=== PATIENT | male | born 1985 | race Caucasian/White ===

== ENCOUNTER → 2019-01-18 | Outpatient (CLI) | payer OTHER | LOC: M.MRI 11:30 | DX: S83.282A Other tear of lateral meniscus, current injury, left knee, initial encounter (principal); X58.XXXA Exposure to other specified factors, initial encounter; Y93.89 Activity, other specified; Y92.89 Other specified places as the place of occurrence of the external cause; Y99.8 Other external cause status ==

== ENCOUNTER 2019-04-20 20:51 | Emergency (ER) | payer OTHER ==
[~2019-04-20] VITALS: Ht 182.9 cm; Wt 106.6 kg
[2019-04-20 21:16] LABS: ABSOLUTE BASOPHILS 0.1 thou/uL (0.0-0.2); ABSOLUTE EOSINOPHILS 0.2 thou/uL (0.0-0.7); ABSOLUTE MONOCYTES 0.8 thou/uL (0.0-1.2); ABSOLUTE NEUTROPHILS 4.8 thou/uL (1.6-8.1); BASOPHILS 0.8 %; EOSINOPHILS 2.9 %; HEMATOCRIT 43.1 % (42.0-52.0); HEMOGLOBIN 14.6 gm/dL (14.0-18.0); LYMPHOCYTES 25.6 %; MCH 32.1 pg (26.0-34.0); MCHC 33.8 g/dL (28.0-37.0); MONOCYTES 10.6 %; MPV 7.9 fl. (7.2-11.1); NUCLEATED RBCS 0 /100WBC; PLATELET COUNT* 223 thou/uL (150-400); POLYS 60.1 %; RBC 4.54 mil/uL (4.50-6.00); RDW-CV 12.8 % (10.5-14.5)
[2019-04-20 21:23] LABS: CALCIUM 9.1 mg/dL (8.5-10.1)
[2019-04-20 21:27] LABS: APTT 30.6 Seconds (25.0-31.3); PROTIME 10.1 Seconds (9.20-11.50)
[2019-04-20 21:28] LABS: ALBUMIN 3.9 g/dL (3.4-5.0); TOTAL BILIRUBIN 0.4 mg/dL (<0.1-1.0); TOTAL PROTEIN 7.4 g/dL (6.4-8.2)
[2019-04-20 21:46] VITALS: BP 148/90
== END 2019-04-20 21:50 | disposition home or self-care (01) ==
LOC: M.ERS 20:51
PROVIDERS: Family Medicine
DX: S80.02XA Contusion of left knee, initial encounter (principal); G89.18 Other acute postprocedural pain; X58.XXXA Exposure to other specified factors, initial encounter; Y92.89 Other specified places as the place of occurrence of the external cause; Y93.89 Activity, other specified; Y99.8 Other external cause status

== ENCOUNTER → 2019-08-23 | Outpatient (CLI) | payer OTHER | LOC: M.MRI 09:00 | DX: S83.282A Other tear of lateral meniscus, current injury, left knee, initial encounter (principal); M17.12 Unilateral primary osteoarthritis, left knee; X58.XXXA Exposure to other specified factors, initial encounter; Y93.89 Activity, other specified; Y92.89 Other specified places as the place of occurrence of the external cause; Y99.8 Other external cause status ==

== ENCOUNTER 2019-09-17 06:47 | Inpatient (IN) | payer OTHER ==
[2019-09-06 09:17] LABS: ABSOLUTE EOSINOPHILS 0.1 thou/uL (0.0-0.7); ABSOLUTE LYMPHOCYTES 1.3 thou/uL (0.8-5.3); ABSOLUTE MONOCYTES 0.5 thou/uL (0.0-1.2); ABSOLUTE NEUTROPHILS 3.5 thou/uL (1.6-8.1); BASOPHILS 0.8 %; EOSINOPHILS 1.7 %; HEMATOCRIT 44.4 % (42.0-52.0); HEMOGLOBIN 15.6 gm/dL (14.0-18.0); LYMPHOCYTES 24.4 %; MCH 32.7 pg (26.0-34.0); MCHC 35.1 g/dL (28.0-37.0); MCV 93.1 fL (80.0-100.0); MONOCYTES 8.9 %; MPV 8.7 fl. (7.2-11.1); NUCLEATED RBCS 0 /100WBC; PLATELET COUNT* 203 thou/uL (150-400); POLYS 64.2 %; RBC 4.76 mil/uL (4.50-6.00); RDW-CV 12.4 % (10.5-14.5); WBC 5.4 thou/uL (4.0-11.0)
[2019-09-06 09:26] LABS: APTT 28.7 Seconds (25.0-31.3); PROTIME 10.2 Seconds (9.20-11.50)
[2019-09-06 09:30] LABS: ALBUMIN 3.9 g/dL (3.4-5.0); CALCIUM 9.1 mg/dL (8.5-10.1); POTASSIUM 3.9 mmol/L (3.5-5.1); TOTAL BILIRUBIN 0.5 mg/dL (<0.1-1.0); TOTAL PROTEIN 7.2 g/dL (6.4-8.2)
[2019-09-06 10:28] LABS: ESR (SEDRATE) 3 mm/hr (0-15)
[2019-09-07 02:07] LABS: GLYCOHEMOGLOBIN (HGB A1C) 4.8 % (4.8-5.6)
[~2019-09-17] VITALS: Ht 185.4 cm; Wt 99.8 kg
[2019-09-17 18:18] VITALS: BP 139/66
--- NOTE | 2019-09-17 18:22 | NUR ---
PT ARRIVED FROM PACU ABOUT 1745. PT A&Ox4, DROWSY. 2+ PULSES. IV PATENT, INFUSING. DENIED N/V. RATES PAIN 06/26; 1MG DILAUDID, 1 NORCO, & 15MG TORADOL GIVEN AT [phone] IN PACU. TEDs, SCDs AND ICE PACK IN PLACE. ON 2LO2 WITH PULSE OX. TOLERATING FOOD. FALL PRECAUTIONS IN PLACE. WILL CONTINUE TO MONITOR.
[2019-09-17 20:36] VITALS: BP 137/75
[2019-09-18] VITALS: BP 126/75
[2019-09-18 04:22] VITALS: BP 127/73
[2019-09-18 04:29] LABS: HEMATOCRIT 38.4 % (42.0-52.0); HEMOGLOBIN 13.3 gm/dL (14.0-18.0)
--- NOTE | 2019-09-18 05:49 | NUR ---
PATIENT WAS ABLE TO REST COMFORTABLY. RECEIVING OXYCODONE 10-325 Q4 AND 50 MG TRAMADOL Q4. HE HAD SOME VOMITING/NAUSEA AT BEGINNING OF SHIFT BUT NO REPORTS FOR REMAINDER OF NIGHT. RECEIVED ALL ABX SCHEDULED AND WAS ABLE TO REST. UP WITH ASSISTANCE AND WALKER DID WELL GOING TO RESTROOM. WILL CONTINUE TO FOLLOW PLAN OF CARE.
[2019-09-18 08:00] VITALS: BP 125/77
--- NOTE | 2019-09-18 10:11 | NUR ---
PT IS HAVING A PAINFUL POPPING SCENSATION IN THE LATERAL ASPECT OF LEFT KNEE WITH PAIN. RESIDENT SUSAN PAGED AND MADE AWEAR. NO ORDERS GIVEN. STATED THAT HE WOULD LOOK AT XRAYS.
[2019-09-18 15:51] VITALS: BP 135/76
--- NOTE | 2019-09-18 17:39 | NUR ---
RECIEVED O.T. EVAL AND TX ORDER. WILL DEFER TO P.T. AT THIS TIME. PLEASE ORDER FURTHER O.T. SERVICES IF NEEDED.
--- NOTE | 2019-09-18 18:19 | NUR ---
PT A&Ox4. VITALS STABLE. DESSING C/D/I. PAIN PUMP PATENT. TEDS, SCDs, ICE PACK IN PLACE. IV PATENT. PAIN PARTIALLY CONTROLLED WITH NORCO 10/325, TRAMADOL, TORADOL AND DILAUDID. ZOFRAN GIVEN FOR NAUSEA. IN ROOM. WORKED WITH THERAPY. FALL PRECAUTIONS IN PLACE. WILL CONTINUE TO MONITOR.
[2019-09-18 21:05] VITALS: BP 145/90
[2019-09-19 04:12] LABS: HEMOGLOBIN 12.5 gm/dL (14.0-18.0)
--- NOTE | 2019-09-19 05:09 | NUR ---
PATIENT AMBULATING WELL. PAIN STILL AN ISSUE. RATES PAIN 8-9 EACH ASSESSMENT. REQUIRING PAIN MEDICATION OFTEN. NORCO 10-325, DILAUDID, TRAMADOL AND TORADOL WHEN AVAILABLE. TOLERATING FLUIDS AND FOOD WELL NO REPORTS OF NAUSEA. PLAN IS TO WORK WITH THERAPY AGAIN TUESDAY AND PAIN MANAGEMENT. WILL CONTINUE TO FOLLOW PLAN OF CARE.
[2019-09-19 10:34] VITALS: BP 143/90
--- NOTE | 2019-09-19 15:00 | NUR ---
CM CALLED IN PRESCRIPTION, WRITTEN, FOR ELIQUIS, WRITTEN TO HIS PHARMACY 09/18. CHECKED COPAY TODAY AND IT IS $0. UNABLE TO SEE PT.TODAY DUE TO BEING IN THERAPY . NO DISCHARGE TODAY,PER NURSING DUE TO POOR PAIN CONTROL. WILL SEE PT.IN AM TO INFORM OF ELIQUIS COPAY AND TO SET UP HOME HEALTH.
[2019-09-19 16:05] VITALS: BP 126/69
--- NOTE | 2019-09-19 17:57 | NUR ---
ASSUMED CARE OF PATIENT AT APPROX 0730. ALERT AND ORIENTED X4. ASSESSMENT COMPLETED AND CHARTED. VSS ON ROOM AIR. PAIN MANAGED WITH NORCO 10/325, DILAUDID, AND TORADOL. PATIENT STATED THAT HIS LEG HAD BEEN FEELING WET AND THAT HIS PAIN PUMP HAD BEEN LEAKING SINCE YESTERDAY. I EXAMINED THE PUMP AND THE INSERTION SITE AND NOTED THAT IT WAS LEAKING UNDER THE TEGADERM. ANESTHESIA WAS CALLED AND THEY STATED THAT THEY WERE AWARE THAT IT WAS LEAKING. I TOOK THE TEGADERM OFF AND IN DOING SO, I NOTICED THAT THE LINE WAS NOT EVEN IN THE SKIN AND THE MEIDCATION WAS DRAINING ONTO HIS SKIN AND LEAKING OUT FROM UNDER THE TEGADERM. PATIENT WAS VERY UPSET ABOUT THIS AND THAT IT WAS HARD TO CONTROL HIS PAIN DUE TO THE PUMP NOT WORKING IT SHOULD. AN INCICENT REPORT HAS BEEN MADE. PATIENT UP WITH STAND BY ASSIST, USING WALKER AND USING THE RESTROOM. WORKED WELL WITH THERAPIES AND PROGRESSED TOWARD GOALS. FALL PRECAUTIONS IN PLACE. CALL LIGHT WITHIN REACH. WILL CONTINUE WITH PLAN OF CARE.
--- NOTE | 2019-09-19 23:45 | NUR ---
INITAL ASSESMENT COMPLETED AT 1999. PT PLEASANT COOPERATIVE, REPORTS PAIN IN LEFT KNEE AT SURGURY SITE. PT GIVEN PRN DILAUDED WITH GOOD RESULTS. PLACED O2 AT LITERS TO MAINTAIN O2 SAT > 94% AFTER RECIEVING IV NARCOTICS. CALL LIGHT IN REACH, PT DEMONSTRATES PROPER USE.
[2019-09-20] VITALS: BP 145/80
[2019-09-20 03:58] VITALS: BP 127/66
[2019-09-20 08:00] VITALS: BP 125/82
--- NOTE | 2019-09-20 12:00 | NUR ---
SPOKE WITH PT.AND . HE SAID HE IS STILL HAVING ISSUES WITH PAIN CONTROL AND NEEDING IV PAIN MEDS AT TIMES. HE IS NORMALLY INDEPENDENT AT HOME. WORKS [employer]. NO USE OF DME OR HX OF HH. HE WOULD PREFER TO DO OUTPT.THERAPY. THINKING OF USING [facility]. ASKED IF THERE WERE ANY OUTPT.PLACES THAT STAY OPEN LATE. SHE IS THE ONLY ONE THAT CAN DRIVE HIM TO HIS THERAPY. INFORMED OF OUTPT.THERAPY PLACES IN [place]. THEY WILL LOOK ON LINE TO SEE WHAT THEIR HRS ARE. PT.WILL LET CM KNOW IN AM.WILL NEED FWW. [employer] OKD THIS WITH PT.S INSURANCE. ORDER OBTAINED AND PUT IN FRONT OF CHART.
[2019-09-20 15:40] VITALS: BP 121/77
--- NOTE | 2019-09-20 18:34 | NUR ---
ASSUMED CARE OF PATIENT AT APPROX 0730. ALERT AND ORIENTED X4. ASSESSMENT COMPLETED AND CHARTED. VSS ON ROOM AIR. PAIN IS STILL THE CHIEF COMPLAINT, GIVEN ORAL NORCO EVERY 3 HOURS. PATIENT STATED THAT HE WANTED TO TRY TO ONLY USE ORAL PAIN MEDICATION RATHER THAN IV, SO FAR PAIN HAS BEEN MANAGED WITH THIS PLAN. PATIENT UP STAND BY ASSIST AND USING THE WALKER TO WALK TO THE BATHROOM. WORKING WELL WITH THERAPIES AND PROGRESSING TOWARD GOALS. PATIENT SHOWERED TODAY. NO OTHER COMPLAINTS THIS SHIFT. CALL LIGHT WITHIN REACH. HOURLY ROUNDS COMPLETED. WILL CONTINUE WITH PLAN OF CARE.
[2019-09-20 20:31] VITALS: BP 132/68
[2019-09-21 00:18] VITALS: BP 131/73
[2019-09-21 03:53] VITALS: BP 122/68
[2019-09-21 07:35] VITALS: BP 123/84
--- NOTE | 2019-09-21 07:35 | NUR ---
ASSUMED CARE OF PT 09/20/19 AT APPROX 1930, PT A&OX4 THORUGHOUT SHIFT, VSS, PAIN MED REQUESTED AND GIVEN Q3HR ORDERED, PT STATES HE IS READY TO GO HOME, ASSESSMENTS AND HOURLY ROUNDINGS COMPLETED, REPORT GIVEN AND CARE OF PT TRANSFERED TO DAY SHIFT NURSE APPROX 0715.
[2019-09-21] MEDS ORDERED: NORCO 5-325 TA1 EAC1 PO (09:57)
[2019-09-21] MEDS ORDERED: ULTRAM 50MG TAB50 MG PO (09:57)
[2019-09-21 09:58] VITALS: BP 123/84
[2019-09-21] MEDS ORDERED: ELIQUIS2.5 MG PO (09:58)
[2019-09-21] MEDS ORDERED: ASPIR-TRIN325 MG PO (10:05)
--- NOTE | 2019-09-21 15:20 | NUR ---
PT.DISCHARGING TODAY. ORDER FOR FWW GIVEN TO PHYSICAL THERAPIST TO DISPENSE WALKER. PT.AND HAVE DECIDED TO DO OUTPT.THERAPY AT [facility] IN [place],WHERE THEY LIVE. CM SPOKE WITH ABBEY/[facility] [phone]. FAXED ORTHO ORDERS,FACE SHEET AND OP REPORT TO [facility] [phone]. AT DESK AND SPOKE WITH ABBEY ON PHONE TO SET UP FIRST APPT.
[2019-09-21 16:45] VITALS: BP 123/84
--- NOTE | 2019-09-21 16:46 | NUR ---
PT GIVEN DISCHARGE INFORMATION, CARE NOTES, AND PRESCRIPTIONS GIVEN. IV REMOVED. WALKER OBTAINED. PT LEFT VIA WHEELCHAIR WITH NURSING STAFF TO HOME WITH OUTPATIENT THERAPY. FALL RISK PRECAUTIONS IN PLACE. HOURLY ROUNDING COMPLETED.
--- NOTE | 2019-09-25 12:41 | OP ---
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 OPERATIVE PROCEDURE: Left total knee arthroplasty. SURGEON: Homer Horta DO BENCH [employer]SEMBLY INSPECTOR: AVTAR Li and Kali Phillip DO ANESTHESIA: General LMA with an adductor block. COMPLICATIONS: None. ESTIMATED BLOOD LOSS: 135 mL. IMPLANTS: [employer] total knee arthroplasty with a Journey II, femur, a 32 patella oval, a size 4 femur posterior stabilized Oxinium, a size 5 tibial plate. Two bags of Palacos cement. Two grams of vancomycin powder topically. SPECIMENS: None. ANTIBIOTICS: 2 g Ancef IVPB 30 minutes prior to incision. COMPLICATIONS: None. INDICATIONS FOR SURGERY: The patient is a 33-year-old male with longstanding severe left leg pain, both hip pain, knee pain and severe knee deformity with greater than 20 degrees of valgus deformity. This patient has failed conservative treatment to date including attempted weight loss, physical therapy, bracing, arthroscopic surgical debridement, injections, nonsteroidal anti-inflammatories and other treatments that he has attempted. He now has increasing deformity to the knee with instability. He walks with severe [facility] [address] [place] [address] OPERATIVE REPORT Name: SMITH SILVESTRE Room: [address]#: [id number] Admission: 09/17/19 Attend Phys: José Luis Lobo Discharge: 09/21/19 Date of : 85 Report #: [id number] antalgic gait. He is awakened at night with pain. His quality of life is diminished. He is here today for elective surgical intervention despite his age. Risks and complications have been discussed in detail with this patient in detail as well as his family. They include but are not limited to neurovascular damage, infection, fracture, need for further surgery, failure of the prosthesis, recall of the prosthesis, allergy developed to prosthesis, deep vein thrombosis, pulmonary emboli, myocardial infarction, rhabdomyolysis, blood loss, blood transfusion reactions, anesthesia, anesthesia reactions, which will be discussed in better terms with the anesthesiologist and even rhabdomyolysis and . Signed informed consent has been attached to chart, may refer to and his knee is marked preoperatively for timeout technique. DESCRIPTION OF PROCEDURE: The patient was taken to the operating room suite and placed on the operating table in supine position. Following general LMA anesthetic, the left leg was then prepped and draped in usual sterile fashion with tourniquet to proximal left thigh. After timeout technique was performed, tourniquet was inflated to 295 mmHg pressure. A midline incision was made through skin and subcutaneous tissue down to the extensor mechanism. A median parapatellar incision was performed. Patella was everted and the knee was flexed to 120 degrees. There were areas of eburnated bone on the lateral deficient condyle of the femur as well as patellofemoral joint. There was hypoplastic lateral femoral condyle and severe valgus deformity to the knee, preoperatively, which was not correctable. The premade MRI directed blocks from [employer] and [employer] system was utilized and placed on the femur, aligned in the proper positioning checked with the external alignment guides and pinned into place. The distal femoral cut was then performed. The cutting block was removed. The pins were removed. The 5-in-1 cutting block was impacted firmly into place, held in place with 2 pins. The anterior, posterior condylar cuts followed by anterior, posterior chamfer cuts were then performed. The cutting block was removed as well as all bony wafers of cut bone. Attention was then turned to the tibia. The MRI directed tibial Premier guide was applied, aligned in all planes, made certain that appropriate alignment was noted, pinned into place and the proximal tibia was resected. The tibial bone was removed as well as the meniscal structures. The trial tibial implant was inserted and aligned in all planes, impacted into the previously aligned drill holes. This was checked with external guide and found to be excellent alignment. A trial femoral component was impacted firmly into place cheating slightly laterally. Trial reduction was performed with various sized spacers. The 10 mm spacer gave best range of motion, best stability throughout the arc of motion. The patella tracked laterally and there was bound by some very large lateral plication, therefore, this was released and the patella tracked anatomically after that was performed. The patella was prepared by denervating the patella itself with use of an electrocautery followed by reaming of the patella with the Cayla reaming system to a 15-16 mm remaining patellar thickness. Three drill holes were performed and the patellar trial button was applied. The knee was placed through range of motion and found to track well with the lateral release. Final [facility] [address] [address] OPERATIVE REPORT Name: NIRMALASMITHMIC GRAFFCHADJay Jay Room: [address] [place] .R.#: [id number] Admission: 09/17/19 Attend Phys: José Luis Lobo Discharge: 09/21/19 Date of : 85 Report #: [id number] components were obtained. Trial components were removed. Sclerotic bone was drilled, for it was small drill holes for better interdigitation of cement. The posterior capsule was injected with the anesthetic solution. Two bags of Palacos cement were mixed on the back table while pulsatile lavage was utilized to thoroughly cleanse all bony ends which were then thoroughly dried. Cement was placed into the interstices of bone with the pressurizing gun. Tibia was performed first, followed by the femur, then the patella. All implants were impacted firmly into place and excess cement was removed sharply. A 10 mm spacer was placed in the knee and knee was held in full extension and found to be easily 0-140 degrees of flexion without any problem and excellent alignment of the knee with excellent tracking. It should be noted that this patient has significant arthritic changes to his left hip and does not internally rotate at the thigh due to hip arthritis. However, his knee is moving in excellent range of motion. The tourniquet was deflated. Hemostasis was achieved with electrocautery and direct pressure. The final spacer was inserted into place, locked in place with the impactor. The knee was held in 90 degrees of flexion until complete cement hardening. During this time, the knee was closed with a #1 Vicryl in [id number] fashion to the extensor mechanism. This was reinforced with #1 Quill in running fashion the entire extensor mechanism. Skin is reapproximated with 2-0 Monocryl subcutaneous sutures followed by running 3-0 Stratafix subcuticular suture, reinforced externally with Dermabond glue. A Mepilex dressing was applied followed by thigh high CK hose. The patient tolerated the procedure well and was taken to recovery in stable condition. No complications were encountered. Final instrument counts and sponge counts correct x 2. Topical vancomycin powder was utilized on the wound prior to closing. <ELECTRONICALLY SIGNED> By: Miguel Landers DO 09/25/19 [id number] Horta DO /zen
== END 2019-09-21 16:47 | disposition home health service (06) | DRG 470 ==
LOC: M.PRE → M.ORTHSURG 09:20 → M.TBA 09:20 → M.PRE 10:12 → M.ORTHSURG 13:53 → M.PRE 15:30 → M.ORTHSURG 09-21 16:47
PROVIDERS: Orthopaedic Surgery; ADMIT Internal Medicine
PROC: 0SRD069 Replacement of Left Knee Joint with Oxidized Zirconium on Polyethylene Synthetic Substitute, Cemented, Open Approach (ICD-10-PCS; principal; 2019-09-17)
DX: M17.12 Unilateral primary osteoarthritis, left knee (principal); D62 Acute posthemorrhagic anemia; M21.062 Valgus deformity, not elsewhere classified, left knee; Z88.5 Allergy status to narcotic agent; Z88.8 Allergy status to other drugs, medicaments and biological substances; Z79.82 Long term (current) use of aspirin; Z79.891 Long term (current) use of opiate analgesic; Z28.21 Immunization not carried out because of patient refusal; Z79.899 Other long term (current) drug therapy